=== PATIENT | male | born 1990 | race Two or more races ===

== ENCOUNTER 2018-01-10 02:26 | Emergency (ER) | payer SELFPAY ==
[2018-01-10] MEDS ORDERED: CEPHALEXIN MONOHYDRATE 500 MG CAPSULE (UD) PO ONE (02:36)
[2018-01-10 02:37] VITALS: BP 141/85; PULSE 69; TEMP 98.3; BMI 29.7
[2018-01-10] MEDS ORDERED: CEPHALEXIN MONOHYDRATE 500 MG CAPSULE (UD) ONE (02:38)
--- NOTE | 2018-01-10 02:39 | PDOC ---
History of Present Illness - General Chief Complaint: Injury Stated Complaint: CUT RIGHT INDEX FINGER WITH KNIFE Time Seen by Provider: 01/10/18 02:35 History Source: Patient Exam Limitations: No Limitations - History of Present Illness Initial Comments: 01/10/18 02:44 This is a 27-year-old male brought in by ambulance for evaluation of above fingertip laceration. 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 Patient otherwise is healthy. Patient recently arrived in this country from [place]. Patient last tetanus is unknown. PAST MEDICAL HISTORY: no significant history PAST SURGICAL HISTORY: no significant history FAMILY HISTORY: no pertinant history SOCIAL HISTORY: Pt lives with family and is employed. MEDICATIONS: reviewed ALLERGIES: As per nursing notes Review of Systems General: No fevers or chills, no weakness, no weight loss HEENT: No change in vision. No sore throat,. No ear pain CardioVascular: No chest pain or shortness of breath Respiratory:No cough, or wheezing. Gastrointestinal: no nausea, vomitting, diarrhea or constipation, No rectal bleeding Genitourinary: No dysuria, hematuria, or frequency Musculoskeletal: No joint or muscle pain or swelling, fingertip laceration as per history of present illness Neurologic: No headache, vertigo, dizziness or loss of consciousness Psychiatric: nor depression Skin: No rashes or easy bruising Endocrine: no increased thirst or abnormal weight change Allergic: no skin or latex allergy All other systems reviewed and normal GENERAL: The patient is awake, alert, and fully oriented, in no acute distress. HEAD: Normal with no signs of trauma. EYES: Pupils equal, round and reactive to light, extraocular movements intact, sclera anicteric, conjunctiva clear. EXTREMITIES: Normal range of motion, no edema. Right index finger there is a avulsion laceration of the tip of the right index finger. There is active bleeding. NEUROLOGICAL: Normal speech, normal gait. grossly intact PSYCH: Normal mood, normal affect. SKIN: Warm, Dry, normal turgor, no rashes or lesions noted. Procedure note Surgicel placed on the tip of the finger over the wound and taped in place. Patient tolerated well Assessment and plan: This is a 27-year-old male who comes in complaining of avulsion laceration of the tip of his right index finger. The finger is cleaned and Surgicel was placed over the tip of the finger. Patient tolerated well. Patient discharged home after being started on Keflex given tetanus and a Percocet for pain. Prescription was sent patient's pharmacy for to continue the Keflex. Past History - Past Medical History Allergies/Adverse Reactions: Allergies Allergy/AdvReac Type Severity Reaction Status Date / Time No Known Allergies Allergy Verified 01/10/18 02:28 Home Medications: Ambulatory Orders Cephalexin [Keflex] 500 mg PO QID #28 capsule 01/10/18 COPD: No Other medical history: DENIES - Suicide/Smoking/Psychosocial Hx Smoking History: Current every day smoker Have you smoked in the past 12 months: Yes Number of Cigarettes Smoked Daily: 20 Information on smoking cessation initiated: Yes 'Breaking Loose' booklet given: 01/10/18 Hx Alcohol Use: No Drug/Substance Use Hx: No Substance Use Type: None *Physical Exam - Vital Signs Last Vital Signs Temp Pulse Resp BP Pulse Ox 98.3 F 69 16 141/85 99 01/10/18 02:29 01/10/18 02:29 01/10/18 02:29 01/10/18 02:29 01/10/18 02:29 *DC/Admit/Observation/Transfer Diagnosis at time of Disposition: Avulsion, finger tip Qualifiers: Encounter type: initial encounter Qualified Code(s): S61.209A - Unspecified open wound of unspecified finger without damage to nail, initial encounter - Discharge Dispostion Disposition: HOME Condition at time of disposition: Stable Admit: No - Prescriptions Prescriptions: Cephalexin [Keflex] 500 mg PO QID #28 capsule - Referrals - Patient Instructions Additional Instructions: Take Keflex one tablet 4 times a day for one week to prevent infection. Tylenol or Motrin as needed for pain. Clean the area once a day with a little peroxide do not remove the last couple of layers of fabric from the wound as it will cause it to bleed. Return to the emergency department immediately with ANY new, persistent or worsening symptoms. Continue any medications as previously prescribed by your physician. You should follow up with your primary doctor as soon as possible regarding today's emergency department visit. . Please make sure your doctor reviews the results of your emergency evaluation. Thank you for coming to the Emergency Department today for your care. It was a pleasure to see you today. Please note that your evaluation is INCOMPLETE until you follow-up with your doctor. - Post Discharge Activity
[2018-01-10] MEDS ORDERED: DIPHTH,PERTUSS(ACELL),TET 0.5 ML DISP.SYRIN IM ONE (02:40)
== END 2018-01-10 02:46 | disposition home or self-care (01) ==
LOC: FER 02:26
PROC: 3E0234Z Introduction of Serum, Toxoid and Vaccine into Muscle, Percutaneous Approach (ICD-10-PCS; principal; 2018-01-10)
PROC: 0HQFXZZ Repair Right Hand Skin, External Approach (ICD-10-PCS; 2018-01-10)
DX: S61.210A Laceration without foreign body of right index finger without damage to nail, initial encounter (principal); W26.0XXA Contact with knife, initial encounter; Y93.89 Activity, other specified; Y92.512 Supermarket, store or market as the place of occurrence of the external cause; Y99.0 Civilian activity done for income or pay; F17.210 Nicotine dependence, cigarettes, uncomplicated
CPT/HCPCS: 90715; 99281-25